=== PATIENT | female | born 1990 | race Caucasian/White ===

== ENCOUNTER → 2016-04-18 | Outpatient (CLI) | payer BC ==
[2016-04-18 13:16] LABS: BASOPHILS # (AUTO) 0.08 10*3/UL; BASOPHILS % (AUTO) 1.1 % (0-1); EOSINOPHILS % (AUTO) 2.6 % (0-8); HEMATOCRIT 42.2 % (37.0-47.0); HEMOGLOBIN 14.4 g/dL (12.0-16.0); IMM GRAN % (AUTO) 0.3 % (0-5); IMM GRAN# (AUTO) 0.02 10*3/UL; LYMPHOCYTES # (AUTO) 2.79 10*3/uL; LYMPHOCYTES % (AUTO) 37.9 % (10-50); MEAN CORPUSCULAR HEMOGLOBIN 29.7 PG (27-31); MEAN CORPUSCULAR HGB CONC 34.1 g/dL (33-37); MEAN PLATELET VOLUME 9.6 FL (7.4-12.2); MONOCYTES # (AUTO) 0.56 10*3/UL (0.3-0.8); MONOCYTES % (AUTO) 7.6 % (5-15); NEUTROPHILS # (AUTO) 3.73 10*3/UL; NEUTROPHILS % (AUTO) 50.5 % (50-80); RDW COEFFICIENT OF VARIATION 11.8 % (11.5-14.5); RED BLOOD COUNT 4.85 10^6/uL (4.20-5.40); WHITE BLOOD COUNT 7.37 10^3/uL (4.8-10.8)
[2016-04-18 13:26] LABS: PLATELET MORPHOLOGY COMMENT NORMAL MORPHOLOGY (NORM)
[2016-04-18 13:42] LABS: ASPARTATE AMINO TRANSFERASE 17 IU/L (8-39); BILIRUBIN,TOTAL 0.4 mg/dL (0.3-1.2); BLOOD UREA NITROGEN 12 mg/dL (7-22); BUN/CREATININE RATIO 13.33 (6-20); CALCIUM 9.7 mg/dL (8.7-10.7); CHLORIDE 105 meq/L (98-112); CREATININE 0.9 mg/dL (0.50-1.20); EST GLOMERULAR FILTRATION > 60 (>60 ml/min/1.73m(2)); GLUCOSE 74 mg/dL (78-110); HDL CHOLESTEROL 50 mg/dL (40-150); POTASSIUM 4.3 meq/L (3.8-5.2); SODIUM 143 meq/L (135-145); TOTAL PROTEIN 7.1 g/dL (6.1-8.0); TRIGLYCERIDES 109 mg/dL (44-200)
[2016-04-18 13:59] LABS: FREE T4 (FREE THYROXINE) 1.19 ng/dL (0.93-1.71)
[2016-04-18 14:06] LABS: ERYTHROCYTE SEDIMENTATION RATE 5 MM/HR (0-20)
[2016-04-20 10:32] LABS: ESTRONE, SERUM 36 pg/mL (())
== END ==
LOC: MOB LAB 11:51
PROVIDERS: ATTEND Family Medicine
DX: R51 Headache (principal); R11.0 Nausea; F39 Unspecified mood [affective] disorder
CPT/HCPCS: 36415; 80053; 80061; 82306; 82607; 82670; 82679; 83001; 83735; 84439; 84443; 85025; 85652

== ENCOUNTER 2016-04-30 10:04 | Day surgery (SDC) | payer BC ==
[~2016-04-30 10:04] MED LIST: BUPIVACAINE 0.5% W/ EPI - 10 ML VIAL ONE; LIDOCAINE W/ SODIUM BICARB 0.5 ML SYR ONE; Lactated Ringers 1,000 ML PRIMARY IV ONE; ceFAZolin Inj 2gm (Premix) 50 ML IV ONE
[2016-04-30] MEDS ORDERED: MIDAZOLAM 5 MG/1 ML ONE (10:09)
[2016-04-30] MEDS ORDERED: LIDOCAINE MPF 2% - 5 ML (20 MG/1 ML) ONE (10:09)
[2016-04-30] MEDS ORDERED: fentaNYL Inj 250 MCG/5 ML VIAL ONE (10:09)
[2016-04-30] MEDS ORDERED: ROCURONIUM 10 MG/1 ML - 5 ML VIAL IVP ONE (10:10)
[2016-04-30 10:49] LABS: URINE SPECIFIC GRAVITY - MAN 1.017
[2016-04-30] MEDS ORDERED: ONDANSETRON 4 MG/2 ML VIAL ONE (11:07)
[2016-04-30] MEDS ORDERED: KETOROLAC 30 MG/1 ML VIAL ONE (11:07)
[2016-04-30] MEDS ORDERED: HYDROmorphone 2 MG/1 ML ONE (11:14)
[2016-04-30] MEDS ORDERED: Lactated Ringers 1,000 ML PRIMARY IV ONE ×2 (11:34→14:07)
[2016-04-30] MEDS ORDERED: SUGAMMADEX SODIUM 200 MG/2 ML VIAL IV ONE (11:38)
[2016-04-30] MEDS ORDERED: ONDANSETRON 4 MG/2 ML VIAL IVP PRN (12:06)
[2016-04-30] MEDS ORDERED: MORPHINE SULFATE 2 MG/1 ML IVP PRN (12:06)
[2016-04-30] MEDS ORDERED: oxyCODONE-ACETAMINOPHEN 5-325 TAB PO PRN (12:06)
[2016-04-30] MEDS ORDERED: NORMAL SALINE 10 ML SYRINGE FLUSH IVP PRN ×2 (12:06→12:19)
--- NOTE | 2016-04-30 12:06 | GEN.OPNOTE ---
Operative Note Surgery Date: 04/30/16 Preoperative Diagnosis: Umbilical hernia. Postoperative Diagnosis: Umbilical hernia. Procedure: Umbilical herniorrhaphy. Surgeon: Lyndon Mercer MD Anesthesia Provider: Jitendra Borrero CRNA Anesthesia Type: General Estimated Blood Loss (mL): 1 Fluids: 1000 mL of crystalloid. 2 g of IV Ancef at the start of the procedure. 30 mg of IV Toradol at the end of the procedure. Pathology: No specimens. Indications: Symptomatic umbilical hernia for surgical repair. Findings: Hernia right at the base of the umbilicus. There are 2 small hernias above the umbilicus. All were excised and opened into one common defect which was closed down the midline. Complications: None. Operative Summary: The patient was taken to the operating room and placed on the operating table in the supine position. Following induction of general anesthetic the abdomen was prepped and draped in a sterile fashion. A curvilinear incision was made below the umbilicus. This was carried down to the fascia. The umbilicus was detached. This allowed us to visualize the hernia sac. The dissection was carried down to the fascial edges. The hernia sac was excised. The herniated preperitoneal fat easily reduced through the defect. There were 2 other small hernias superiorly to the umbilicus. A common defect was made excising all of the thin fascial edges. This left a defect approximately 3 inches in length. The defect was closed down the midline using running #1 Prolene. Having accomplished a very adequate repair hemostasis was assured. The wound was irrigated. Final irrigation was one half percent Marcaine with epinephrine. It was allowed to sit for several minutes and then removed. The umbilicus was reattached to the fascia with 3-0 Vicryl. The deep dermis was closed with inverted interrupted 3-0 Vicryl. The skin was closed with running subcuticular 4-0 Prolene followed by Mastisol, Steri-Strips and an appropriate dressing. The patient tolerated the entire procedure well without complication. The patient was taken to the recovery room in stable condition. All counts were correct.
[2016-04-30] MEDS ORDERED: Lactated Ringers 1,000 ML PRIMARY IV SCH ×2 (12:15→12:30)
[2016-04-30] MEDS ORDERED: PROMETHAZINE 25 MG/1 ML VIAL IM PRN (12:19)
[2016-04-30] MEDS ORDERED: fentaNYL Inj 100 MCG/2 ML VIAL IVP PRN (12:19)
[2016-04-30] MEDS ORDERED: HYDROmorphone 2 MG/1 ML IVP PRN (12:19)
[2016-04-30] MEDS ORDERED: oxyCODONE-ACETAMINOPHEN 5-325 TAB PO ONE ×2 (12:41→15:19)
[2016-04-30] MEDS ORDERED: PROMETHAZINE 25 MG/1 ML VIAL IM ONE (13:57)
[2016-04-30 15:14] VITALS: RESP 12
[2016-04-30 15:40] VITALS: TEMP 98.2
== END 2016-04-30 15:30 | disposition home or self-care (01) ==
LOC: SDSC 10:04
PROVIDERS: ATTEND Surgery
DX: K42.9 Umbilical hernia without obstruction or gangrene (principal)
CPT/HCPCS: 49585; 84703; J0690; J1885; J2704; J3010; J1170; J2001; J2250; J2405; J2550; J7120